=== PATIENT | female | born 1930 | race Caucasian/White ===

== ENCOUNTER 2016-09-28 20:56 | Emergency (ER) | payer OTHER ==
[~2016-09-28] VITALS: Ht 162.6 cm; Wt 55.1 kg
[~2016-09-28 20:56] MED LIST: ASPIRIN81 M1 PO; CALCIUM 600 +1 EACH PO; GLYCOLAX225 GM PO; KLONOPIN0.5 M1 PO; LIPITOR80 MG PO; LOPRESSOR25 MG PO; RAMIPRIL PO; Robitussin AC,Tussi- PO; SINEMET 25-1001 EACH PO; Tums PO; VITAMIN D1000 INTUN PO; VITAMIN D35000 UNIT PO; ZITHROMAX Z-PA250 MG PO; ZOLOFT50 MG
[2016-09-28] MEDS ORDERED: PERCOCET 5/31 TABLET PO (22:31)
[2016-09-28 22:48] VITALS: BP 151/73
== END 2016-09-28 22:48 | disposition home or self-care (01) ==
LOC: EME → EDBD 20:56 → EME 22:48
DX: S70.01XA Contusion of right hip, initial encounter (principal); M79.604 Pain in right leg; W01.0XXA Fall on same level from slipping, tripping and stumbling without subsequent striking against object, initial encounter; Z96.641 Presence of right artificial hip joint; I10 Essential (primary) hypertension; E78.5 Hyperlipidemia, unspecified; Z95.1 Presence of aortocoronary bypass graft; Z79.82 Long term (current) use of aspirin
CPT/HCPCS: 73502; 99281; 99284

== ENCOUNTER 2016-10-01 00:32 | Inpatient (IN) | payer OTHER ==
[~2016-10-01] VITALS: Ht 162.6 cm; Wt 53.0 kg
[~2016-10-01 00:32] MED LIST changes: +PERCOCET 5/31 TABLET PO
[2016-10-01 01:07] LABS: MCH 30.9 PG (29.0-34.0); MCHC 33.2 G/DL (30.0-36.0); MCV 92.9 FL (83-99); MEAN PLAT.VOLUME 9.1 uM^3 (9.5-12.4); PLATELET COUNT 177 K/uL (156-360); RBC DIS.WIDTH-CV 13.3 % (11.8-14.6); RBC DIS.WIDTH-SD 43.3 % (39-53); RED BLOOD COUNT 3.66 M/uL (3.80-5.20); WHITE BLOOD COUNT 6.7 K/uL (4.1-10.2)
[2016-10-01 01:18] LABS: INTER. NORMALIZED RATIO 1.1; PROTHROMBIN TIME 11.3 (9.2-11.2); PTT 33.2 (25-32)
[2016-10-01 01:22] LABS: CHLORIDE 103 mEq/L (99-109); POTASSIUM 4.6 mEq/L (3.7-5.4); SODIUM 135 mEq/L (136-147)
[2016-10-01 01:25] LABS: GLUCOSE 117 mg/dL (70-99)
[2016-10-01 01:26] LABS: ANION GAP 8 MEQ/L (2-14)
[2016-10-01 01:27] LABS: TOTAL BILIRUBIN 0.8 mg/dL (0.0-1.0)
[2016-10-01 01:28] LABS: ALKALINE PHOSPHATASE 70 IU/L (3-129); GFR ESTIMATE (CALCULATED) > 59 mL/min/
[2016-10-01 01:29] LABS: UREA NITROGEN (BUN) 16 mg/dL (9-23)
[2016-10-01 04:15] VITALS: BP 162/70
[2016-10-01 08:15] VITALS: BP 158/65
[2016-10-01] MEDS ORDERED: ROPINIROLE HCL0.5 MG PO (11:29)
[2016-10-01] MEDS ORDERED: CLONAZEPAM0.5 MG PO (11:30)
[2016-10-01] MEDS ORDERED: RAMIPRIL10 MG PO (11:31)
[2016-10-01] MEDS ORDERED: CALCIUM 600+D1 EACH PO (11:33)
[2016-10-01] MEDS ORDERED: ZOLOFT50 MG PO (11:34)
[2016-10-01] MEDS ORDERED: SINEMET 25-1001 EACH PO (11:36)
[2016-10-01] MEDS ORDERED: PERCOCET 5/31 TABLET PO (11:38)
[2016-10-01] MEDS ORDERED: SYSTANE 0.3-0.1 EACH BOTH EYES (11:39)
[2016-10-01] MEDS ORDERED: ERGOCALCIF50000 UNIT PO (11:40)
[2016-10-01] MEDS ORDERED: LO-DOSE ASPIRIN81 M2 PO (11:47)
[2016-10-01 12:16] VITALS: BP 134/62
[2016-10-01 16:45] VITALS: BP 140/66
[2016-10-01 19:14] VITALS: BP 144/61
[2016-10-02] VITALS (7 sets, daily range): BP systolic 138–180; BP diastolic 66–79
[2016-10-03 04:30] VITALS: BP 149/68
[2016-10-03 07:00] VITALS: BP 168/81
[2016-10-03 11:45] VITALS: BP 155/67
[2016-10-03 16:52] VITALS: BP 152/70
[2016-10-03 21:00] VITALS: BP 149/69
[2016-10-04 00:03] VITALS: BP 152/70
[2016-10-04 04:26] VITALS: BP 139/66
[2016-10-04 08:45] VITALS: BP 146/67
[2016-10-04 12:00] VITALS: BP 112/57
== END 2016-10-04 18:27 | DRG 965 ==
LOC: EME 00:32 → 4EAST 03:31 → EDOF 03:31 → 4EAST 03:31
PROVIDERS: Emergency Medicine
PROC: 0CQ0XZZ Repair Upper Lip, External Approach (ICD-10-PCS; principal; 2016-10-01)
DX: S32.591A Other specified fracture of right pubis, initial encounter for closed fracture (principal); S32.421A Displaced fracture of posterior wall of right acetabulum, initial encounter for closed fracture; S06.300A Unspecified focal traumatic brain injury without loss of consciousness, initial encounter; S01.511A Laceration without foreign body of lip, initial encounter; S05.12XA Contusion of eyeball and orbital tissues, left eye, initial encounter; S02.5XXA Fracture of tooth (traumatic), initial encounter for closed fracture; W01.10XA Fall on same level from slipping, tripping and stumbling with subsequent striking against unspecified object, initial encounter; Y92.009 Unspecified place in unspecified non-institutional (private) residence as the place of occurrence of the external cause; D32.0 Benign neoplasm of cerebral meninges; K59.00 Constipation, unspecified; G89.29 Other chronic pain; I25.10 Atherosclerotic heart disease of native coronary artery without angina pectoris; I10 Essential (primary) hypertension; G20 Parkinson's disease; E78.00 Pure hypercholesterolemia, unspecified; F32.9 Major depressive disorder, single episode, unspecified; E78.5 Hyperlipidemia, unspecified; Z95.1 Presence of aortocoronary bypass graft; Z96.641 Presence of right artificial hip joint
CPT/HCPCS: 70450; 70486; 71010; 72125; 72192; 80053; 85027; 85610; 85730; 97530 GP; 99281; 99285